=== PATIENT | female | born 1995 | race Caucasian/White ===

== ENCOUNTER 2019-01-08 22:43 | Emergency (ER) | payer BC ==
[~2019-01-08] VITALS: Ht 165.1 cm; Wt 79.5 kg
[~2019-01-08 22:43] MED LIST: ADDERALL10 MG PO; ANUSOL-HC SUPPO25 MG RC; CYMBALTA 30MG30 MG PO; IMPLANON; KLONOPIN 0.5MG0.5 MG PO; KLONOPIN 1MG1 MG PO; TRI-LEVLEN 281 TAB PO; ULTRAM 50MG TAB50 MG PO; VYVANSE40 MG PO; VYVANSE60 MG PO; ZOFRAN 4MG T4 MG/TAB PO; ZYRTEC 10MG10 MG PO
[2019-01-08 22:47] VITALS: TEMP 97.9
[2019-01-08 23:20] LABS: BASO % 0.1 % (0.0-2.0); EOS # 0.2 (0.0-0.7); EOS % 1.3 % (0-4.0); GRAN # 11.1 (1.4-6.5); GRAN % 76.8 % (42.2-75.2); HEMATOCRIT 44.8 % (37.0-47.0); HEMOGLOBIN 15.5 g/dl (12.5-16.0); LYMPH # 1.8 (1.2-3.4); LYMPH % 12.2 % (20.0-51.0); MEAN CELL VOLUME 92 fl (80.0-100.0); MEAN CORPUSCULAR HEMOGLOBIN 32 pg (27.0-31.0); MEAN CORPUSCULAR HGB CONC 35 g/dl (33.0-37.0); MEAN PLATELET VOLUME 8.7 fl (7.4-10.4); MONO # 1.4 (0.1-0.6); MONO % 9.3 % (1.7-9.3); PLATELET COUNT 391 K/mm3 (130-400); RED BLOOD COUNT 4.85 M/mm3 (4.10-5.30); REDCELL DISTRIBUTION WIDTH-CV 12.1 % (11.5-14.5)
[2019-01-08 23:28] LABS: ALANINE AMINOTRANSFERASE 29 U/L (9-52); ALKALINE PHOSPHATASE 76 U/L (50-136); ANION GAP 8 mmol/L (7-16); AST,SGOT 25 U/L (15-37); BILIRUBIN,TOTAL 0.4 mg/dL (0.0-1.0); BLOOD UREA NITROGEN 9 mg/dL (7-17); C-REACTIVE PROTEIN < 0.5 mg/dL (0.0-0.9); CALCIUM 9.2 mg/dL (8.4-10.2); CARBON DIOXIDE 26 mmol/L (22-30); CHLORIDE 101 mmol/L (98-107); CREATININE, serum 0.51 mg/dL (0.52-1.25); GLUCOSE 105 mg/dL (74-106); POTASSIUM 3.6 mmol/L (3.4-5.0); SODIUM 135 mmol/L (137-145); TOTAL PROTEIN 7.2 gm/dL (6.4-8.2)
[2019-01-08] MEDS ORDERED: ADDERALL XR30 MG PO (23:42)
[2019-01-08] MEDS ORDERED: ATIVAN 1MG T1 MG/TAB PO (23:43)
[2019-01-08] MEDS ORDERED: ADDERALL15 MG PO ×2 (23:43)
[2019-01-08] MEDS ORDERED: LAMICTAL 100MG100 MG PO (23:44)
[2019-01-08] MEDS ORDERED: DESYREL 100MG100 MG PO (23:44)
[2019-01-08] MEDS ORDERED: DESYREL 50MG50 MG PO (23:44)
[2019-01-08 23:54] LABS: COLLECTION METHOD CLEAN CATCH
[2019-01-08 23:59] LABS: MUCOUS Present /lpf; PH 5 (5-8); SQUAMOUS EPITHELIAL 0-2 /hpf; URINE APPEARANCE Clear; URINE BACTERIA None Seen /hpf; URINE BILIRUBIN Negative (NEGATIVE); URINE BLOOD Negative (NEGATIVE); URINE COLOR Yellow; URINE GLUCOSE Negative (NEGATIVE); URINE KETONE Negative (NEGATIVE); URINE LEUKOCYTE ESTERASE Negative (NEGATIVE); URINE NITRATE Negative (NEGATIVE); URINE PROTEIN(semi-quant) Negative (NEGATIVE); URINE UROBILINOGEN Negative (NEGATIVE)
[2019-01-09 00:29] VITALS: BP 127/85; PULSE 91
[2019-01-09] MEDS ORDERED: ZOFRAN 4MG T4 MG/TAB PO (01:30)
[2019-01-09] MEDS ORDERED: BENTYL 20MG20 MG/TAB PO (01:30)
== END 2019-01-09 01:55 | disposition home or self-care (01) ==
LOC: COL.ER 22:43
PROVIDERS: Emergency Medicine
DX: R19.7 Diarrhea, unspecified (principal); R11.2 Nausea with vomiting, unspecified; R10.84 Generalized abdominal pain; F90.9 Attention-deficit hyperactivity disorder, unspecified type; F32.9 Major depressive disorder, single episode, unspecified; F41.9 Anxiety disorder, unspecified; F17.290 Nicotine dependence, other tobacco product, uncomplicated
CPT/HCPCS: J1885; J2405; J7030

== ENCOUNTER 2019-03-23 13:09 | Day surgery (SDC) | payer BC ==
[~2019-03-23] VITALS: Ht 165.1 cm; Wt 77.9 kg
[~2019-03-23 13:09] MED LIST changes: +ADDERALL XR30 MG PO; +ADDERALL15 MG PO; +ATIVAN 1MG T1 MG/TAB PO; +BENTYL 20MG20 MG/TAB PO; +DESYREL 100MG100 MG PO; +DESYREL 50MG50 MG PO; +LAMICTAL 100MG100 MG PO
[2019-03-23 13:42] VITALS: BP 111/72; PULSE 94; TEMP 96
[2019-03-23] MEDS ORDERED: LAMICTAL150 MG PO (13:49)
--- NOTE | 2019-03-23 13:52 | NUR ---
TO RM AT 1320- CALL LIGHT IN REACH FATHER AT BEDSIDE.
[2019-03-23 14:45] VITALS: BP 126/72; PULSE 102; TEMP 97.8
--- NOTE | 2019-03-23 14:45 | NUR ---
TO BAY 3 PER CART FROM ENDOSCOPY. ALERT ORIENTED X3, AMBULATED TO RECLEINER WITH ASSIST AND TOLERATED WELL. RECEIVED ICE WATER.
[2019-03-23 15:00] VITALS: BP 105/68; PULSE 82
--- NOTE | 2019-03-23 15:00 | NUR ---
MORE AWAKE, TEXTING AND TALKING WITH FATHER
[2019-03-23 15:15] VITALS: BP 107/65; PULSE 82
--- NOTE | 2019-03-23 15:15 | NUR ---
RESTING AND DRINKING WATER. REFUSED ANYTHING TO EAT. STATED SHE WANTED TO EAT AT [employer].
--- NOTE | 2019-03-23 15:30 | NUR ---
DR KAY INTO TALK WITH PATIENT AND HER FATHER, RECEIVED DISCHARGE INSTRUCTIONS DISCONTINUED IV AND INT- CATHETER INTACT
--- NOTE | 2019-03-23 15:50 | NUR ---
DISCHARGED PER WC BY NURSING STAFF TO PRIVATE CAR IN CARE OF FATHER -RACHEL-
== END 2019-03-23 16:00 | disposition home or self-care (01) ==
LOC: SDCO 13:09
DX: R19.7 Diarrhea, unspecified (principal); R11.2 Nausea with vomiting, unspecified; K92.1 Melena; R10.84 Generalized abdominal pain
CPT/HCPCS: OP; J2250; J2405; J3010; J7030

== ENCOUNTER → 2019-10-06 | Outpatient (CLI) | payer BC ==
[~2019-10-06] MED LIST changes: +LAMICTAL150 MG PO
== END ==
LOC: COL.RAD 07:24
DX: K52.9 Noninfective gastroenteritis and colitis, unspecified (principal)